=== PATIENT | male | born 1995 | race Caucasian/White ===

== ENCOUNTER 2022-07-26 13:53 | Emergency (ER) | payer SELFPAY ==
[~2022-07-26] VITALS: Ht 175.3 cm; Wt 127.0 kg
[2022-07-26 14:00] VITALS: BP_SYST 161
[2022-07-26] MEDS ORDERED: GLUCAGON,HUMAN RECOMBINANT 1 MG VIAL IM ONE (14:30)
[2022-07-26] MEDS ORDERED: METOCLOPRAMIDE HCL 10 MG TABLET ONE (14:41)
[2022-07-26] MEDS: METOCLOPRAMIDE HCL 10 MG/10 ML UDC PO ONE ×2 (14:48→14:56)
[2022-07-26 16:45] VITALS: BP_SYST 148
== END 2022-07-26 16:45 | disposition home or self-care (01) ==
LOC: SED 13:53
DX: T18.128A Food in esophagus causing other injury, initial encounter (principal); Z88.1 Allergy status to other antibiotic agents; Z79.899 Other long term (current) drug therapy; W45.8XXA Other foreign body or object entering through skin, initial encounter; Y93.89 Activity, other specified; Y92.89 Other specified places as the place of occurrence of the external cause; Y99.8 Other external cause status
CPT/HCPCS: 99284; 74176; 76376; 96372; J1610; J8597